=== PATIENT | male | born 1970 | race Caucasian/White ===

== ENCOUNTER 2018-06-24 16:32 | Emergency (ER) | END 2018-06-24 18:33 | disposition home or self-care (01) ==

== ENCOUNTER 2018-12-11 17:19 | Emergency (ER) | payer OTHER ==
[~2018-12-11] VITALS: Wt 84.5 kg
[~2018-12-11 17:19] MED LIST: IBUP-1561 PO; LORA-441 PO
[2018-12-11 17:21] VITALS: BP 126/82; PULSE 66; RESP 18
[2018-12-11] MEDS ORDERED: DEXAMETHASONE 10 MG/ML 1 ML INJ IM ONE (21:30)
--- NOTE | 2018-12-11 21:58 | ERD ---
ER Documentation Chief Complaint Chief Complaint LEFT POSSIBLE LYMPH NODE SWELLING HPI History of Present Illness: 48-year-old male who denies a past medical history coming in today with complaint of left neck swelling that is been present for 1 day. Patient reports that left aspect of neck was painful starting 2 days ago. Patient reports cold, flulike symptoms 1 week ago. Patient denies any other associated symptoms. At home pharmacological/nonpharmacological treatment for symptoms: Denies Denies social concerns; Denies recent foreign travel ROS All systems reviewed and are negative except as per history of present illness. Medications Home Meds Active Scripts Lorazepam* (Ativan*) 0.5 Mg Tablet, 0.5 MG PO QHS PRN for ANXIETY, #7 TAB Prov:JUAN CARLOS MARTINEZ MD 06/24/18 Ibuprofen* (Motrin*) 400 Mg Tab, 400 MG PO Q8, #15 TAB Prov:JUAN CARLOS MARTINEZ MD 06/24/18 Reported Medications [None] No Conflict Check 12/01/11 Allergies Allergies: Coded Allergies: No Known Allergy (Unverified , 12/01/11) PMhx/Soc History of Surgery: Yes (GALLBLADDER 10/13/2011) Anesthesia Reaction: No Hx Neurological Disorder: No Hx Respiratory Disorders: No Hx Cardiac Disorders: No Hx Psychiatric Problems: No Hx Miscellaneous Medical Probl: No Hx Alcohol Use: Yes (SOCIALLY/ 2- 3 SMALL DRINKS/WEEK) Hx Substance Use: No Hx Tobacco Use: No (QUIT 20 YEARS AGO) FmHx Family History: diabetes; No coronary disease Physical Exam Vitals Vital Signs Date Temp Pulse Resp B/P (MAP) Pulse Ox O2 O2 Flow FiO2 Time Delivery Rate 12/11/18 97.8 66 18 126/82 99 17:21 (97) Physical Exam Const: No acute distress Head: Atraumatic Eyes: Normal Conjunctiva ENT: Normal External Ears, Nose and Mouth. Neck: Full range of motion. No meningismus. Left cervical adenopathy, tenderness to palpation Resp: Clear to auscultation bilaterally Cardio: Regular rate and rhythm, no murmurs Abd: Soft, non tender, non distended. Normal bowel sounds Skin: No petechiae or rashes Back: No midline or flank tenderness Ext: No cyanosis, or edema Neur: Awake and alert Psych: Normal Mood and Affect Result Diagram: 12/11/18195612/11/181956 Results 24 hrs Laboratory Tests Test 12/11/18 19:57 12/11/18 20:29 White Blood Count 10.5 10^3/ul Red Blood Count 4.97 10^6/ul Hemoglobin 14.4 g/dl Hematocrit 42.1 % Mean Corpuscular Volume 84.7 fl Mean Corpuscular Hemoglobin 29.0 pg Mean Corpuscular Hemoglobin Concent 34.2 g/dl Red Cell Distribution Width 11.9 % Platelet Count 258 10^3/UL Mean Platelet Volume 10.0 fl Immature Granulocytes % 0.300 % Neutrophils % 58.2 % Lymphocytes % 31.7 % Monocytes % 6.4 % Eosinophils % 2.7 % Basophils % 0.7 % Nucleated Red Blood Cells % 0.0 /100WBC Immature Granulocytes # 0.030 10^3/ul Neutrophils # 6.1 10^3/ul Lymphocytes # 3.3 10^3/ul Monocytes # 0.7 10^3/ul Eosinophils # 0.3 10^3/ul Basophils # 0.1 10^3/ul Nucleated Red Blood Cells # 0.0 10^3/ul Sodium Level 141 mmol/L Potassium Level 4.0 mmol/L Chloride Level 107 mmol/L Carbon Dioxide Level 24 mmol/L Anion Gap 10 Blood Urea Nitrogen 15 mg/dl Creatinine 0.75 mg/dl Est Glomerular Filtrat Rate mL/min > 60 mL/min Glucose Level 97 mg/dl Calcium Level 9.3 mg/dl Total Bilirubin 1.1 mg/dl Direct Bilirubin 0.00 mg/dl Indirect Bilirubin 1.1 mg/dl Aspartate Amino Transf (AST/SGOT) 36 IU/L Alanine Aminotransferase (ALT/SGPT) 57 IU/L Alkaline Phosphatase 102 IU/L Total Protein 7.9 g/dl Albumin 4.2 g/dl Globulin 3.70 g/dl Albumin/Globulin Ratio 1.13 Monoscreen Negative Current Medications Medications Dose Sig/Zuri Start Time Status Last (Trade) Ordered Route PRN Stop Time Admin Dose Reason Admin 10 mg ONCE ONCE 12/11/18 DC Dexamethasone IM 21:30 (Decadron) 12/11/18 21:30 Procedures/MDM ED course includes a thorough examination and history. Medications: Imaging: Ultrasound soft tissue of neck Labs: CBC, CMP Low suspicion for life-threatening medical emergency. Low suspicion for infectious process that requires antibiotics at this time. Otherwise healthy patient presenting with constellation of symptoms likely representing lymphadenopathy of the left cervical as characterized by history, physical exam findings, lab findings, imaging findings. CBC: no e/o of systemic infection or severe anemia. CMP: no e/o severe acidosis, alkalosis, renal failure, diabetic ketoacidosis, liver disease. Ultrasound results showing: IMPRESSION: Subcentimeter benign-appearing lymph node in the region of interest. 5 mm avascular cyst in the adjacent soft tissues, nonspecific. If there is continued concern for a soft tissue abnormality in the left neck, further evaluation with contrast enhanced CT may be useful. RPTAT: HTAR .Ej Díaz MD, MD Date Time Electronically viewed and signed by .Ej Díaz MD, MD on 12/11/2018 19:51 Patient reassessment @21:10: We will order dexamethasone before discharge for lymphadenopathy. Patient hemodynamically stable. No respiratory distress, otherwise relatively well appearing and nontoxic. Disposition given. Patient educated on diagnoses, prescriptions, follow-up care, return precautions. Strict return precautions given for worsening condition; questions answered discharge. Disposition for discharge with followup in 2 days with PCP/clinic. Departure Diagnosis: Primary Impression: Lymphadenopathy of left cervical region Additional Impression: Lymphadenitis, acute Condition: Stable Patient Instructions: Lymphangitis Referrals: [facility] YOU HAVE RECEIVED A MEDICAL SCREENING EXAM AND THE RESULTS INDICATE THAT YOU DO NOT HAVE A CONDITION THAT REQUIRES URGENT TREATMENT IN THE EMERGENCY DEPARTMENT. FURTHER EVALUATION AND TREATMENT OF YOUR CONDITION CAN WAIT UNTIL YOU ARE SEEN IN YOUR DOCTORS OFFICE WITHIN THE NEXT 1-2 DAYS. IT IS YOUR RESPONSIBILITY TO MAKE AN APPOINTMENT FOR FOLOW-UP CARE. IF YOU HAVE A PRIMARY DOCTOR --you should call your primary doctor and schedule an appointment IF YOU DO NOT HAVE A PRIMARY DOCTOR YOU CAN CALL OUR PHYSICIAN REFERRAL HOTLINE AT IF YOU CAN NOT AFFORD TO SEE A PHYSICIAN YOU CAN CHOSE FROM THE FOLLOWING [facility] [address] [facility] [address] [facility] [facility] [address] [facility]. [facility] [address] [facility]. [facility] [address] [facility]. [facility]. [address] [facility]. [facility] YOU HAVE RECEIVED A MEDICAL SCREENING EXAM AND THE RESULTS INDICATE THAT YOU DO NOT HAVE A CONDITION THAT REQUIRES URGENT TREATMENT IN THE EMERGENCY DEPARTMENT. FURTHER EVALUATION AND TREATMENT OF YOUR CONDITION CAN WAIT UNTIL YOU ARE SEEN IN YOUR DOCTORS OFFICE WITHIN THE NEXT 1-2 DAYS. IT IS YOUR RESPONSIBILITY TO MAKE AN APPOINTMENT FOR FOLOW-UP CARE. IF YOU HAVE A PRIMARY DOCTOR --you should call your primary doctor and schedule and appointment IF YOU DO NOT HAVE A PRIMARY DOCTOR YOU CAN CALL OUR PHYSICIAN REFERRAL HOTLINE AT . IF YOU CAN NOT AFFORD TO SEE A PHYSICIAN YOU CAN CHOSE FROM THE FOLLOWING [facility] INSTITUTIONS: [facility] [address] [place] [address] [facility] [address] [place] [address] [facility] [address] [place] [address] Additional Instructions: Thank you very much for allowing us to participate in your care. Your health and safety is our top priority at [facility]. It is important to read all discharge instructions and education provided in your discharge packet. Call your primary care doctor TOMORROW for an appointment during the next 2-4 days and bring all the information. If the symptoms get worse and your provider is unavailable, return to the Emergency Department immediately. TIA DOYLE NP December 11, 2018 21:58
== END 2018-12-11 21:30 | disposition home or self-care (01) ==
LOC: FTE 17:19
DX: L04.9 Acute lymphadenitis, unspecified (principal); Z87.891 Personal history of nicotine dependence
CPT/HCPCS: 76536; 80053; 85025; 86308